=== PATIENT | female | born 1950 | race Caucasian/White ===

== ENCOUNTER 2017-12-06 05:50 | Inpatient (IN) | payer OTHER ==
[2017-12-06] MEDS ORDERED: CEFAZOLIN 2 GM/50 ML (PMX) 50 ML IVPB (07:00)
[2017-12-06] MEDS ORDERED: HETASTARCH 6% NACL 500 ML BAG (07:00)
[2017-12-06] MEDS ORDERED: EPHEDrine SULFATE 50 MG/5 ML SYG (07:00)
[2017-12-06] MEDS ORDERED: ROCURONIUM 50 MG INJ (07:42)
[2017-12-06] MEDS ORDERED: CEFAZOLIN 1 GM INJ (07:42)
[2017-12-06] MEDS ORDERED: MIDAZOLAM 1 MG/ML 2 ML INJ (07:42)
[2017-12-06] MEDS ORDERED: PROPOFOL 20 ML (07:42)
[2017-12-06] MEDS ORDERED: morphine SULFATE/PF (10 MG/10 ML) INJ (07:42)
[2017-12-06] MEDS ORDERED: PHENYLephrine 10 MG INJ (08:07)
[2017-12-06] MEDS ORDERED: PHENYLephrine (100 MCG/ML) 5ML SYG (08:08)
[2017-12-06] MEDS: POLYMYXIN/BACITRACIN 1L IRRIG IRR (08:33)
[2017-12-06] MEDS: LIDOCAINE 1%/EPI 30 ML INJ (08:33)
[2017-12-06] MEDS: HEMOSTATIC MATRIX SYG ZFS ×3 (09:01→09:39)
[2017-12-06] MEDS: THROMBIN 5000 UNIT VIAL ×3 (09:01→09:39)
[2017-12-06] MEDS ORDERED: ONDANSETRON 4 MG INJ (09:43)
[2017-12-06] MEDS ORDERED: DEXAMETHASONE 4 MG/ML 1 ML INJ (09:44)
[2017-12-06] MEDS ORDERED: METOCLOPRAMIDE 10 MG INJ (09:44)
[2017-12-06] MEDS ORDERED: SUGAMMADEX SODIUM 200 MG/2 ML VIAL IV (09:44)
[2017-12-06] MEDS ORDERED: ONDANSETRON 4 MG INJ IV (10:00)
[2017-12-06] MEDS ORDERED: ALBUMIN HUMAN 5% 250 ML IV (10:00)
[2017-12-06] MEDS ORDERED: MEPERIDINE 25 MG INJ IV (10:00)
[2017-12-06] MEDS ORDERED: DIPHENHYDRAMINE 50 MG INJ IV (10:00)
[2017-12-06] MEDS ORDERED: NALOXONE (0.4 MG/ML) INJ IV (10:00)
[2017-12-06] MEDS ORDERED: HYDROmorphONE 0.5 MG/0.5 ML SYG IV ×2 (10:00)
[2017-12-06] MEDS ORDERED: NALBUPHINE HCL (10 MG/1 ML) INJ IV (10:00)
[2017-12-06] MEDS ORDERED: morphine 2 MG INJ IV ×2 (10:00)
[2017-12-06] MEDS ORDERED: METOCLOPRAMIDE 10 MG INJ IV (10:00)
[2017-12-06] MEDS ORDERED: HYDROmorphONE (0.2 MG/ML) 10ML SYG IV ×2 (10:00)
[2017-12-06] MEDS ORDERED: LABETALOL HCL 20MG INJ IV (10:00)
[2017-12-06] MEDS ORDERED: ACETAMINOPHEN 500 MG TAB PO (10:00)
[2017-12-06] MEDS ORDERED: FENTAnyl 50 MCG/ML VIAL IV ×2 (10:00)
[2017-12-06] MEDS ORDERED: hydrALAzine 20 MG INJ IV (10:00)
[2017-12-06] MEDS ORDERED: EPHEDrine SULFATE 50 MG/5 ML SYG IV (10:00)
[2017-12-06] MEDS ORDERED: HYDROCODONE/APAP (5/325) TAB PO (10:30)
[2017-12-06] MEDS ORDERED: HYDROmorphONE 1 MG/ML SYG IV (10:30)
[2017-12-06] MEDS ORDERED: KETOROLAC 30 MG INJ IV (10:30)
[2017-12-06] MEDS ORDERED: ZOLPIDEM 5 MG TAB PO (10:30)
[2017-12-06] MEDS: LACTATED RINGER'S 1,000 ML IV ×2 (11:09→16:47)
[2017-12-06] MEDS: ONDANSETRON 4 MG INJ IV ×2 (11:54→17:39)
[2017-12-06] MEDS: METOCLOPRAMIDE 10 MG TAB PO ×2 (12:00→14:11)
[2017-12-06] MEDS: PHYTONADIONE 10 MG/ML INJ IM (12:39)
[2017-12-06] MEDS: LACTATED RINGER'S 1,000 ML IV* (12:39)
[2017-12-06] MEDS: CEFAZOLIN 1 GM/50 ML (PMX) 50 ML IVPB ×2 (13:52→22:10)
[2017-12-07] MEDS: ONDANSETRON 4 MG INJ IV ×2 (00:32→06:49)
[2017-12-07] MEDS: DIPHENHYDRAMINE 50 MG INJ IV ×2 (00:40→05:02)
[2017-12-07] MEDS: LACTATED RINGER'S 1,000 ML IV ×2 (01:38→13:30)
[2017-12-07 05:20] LABS: ADD MAN DIFF? NO
[2017-12-07] MEDS: CEFAZOLIN 1 GM/50 ML (PMX) 50 ML IVPB ×4 (05:30→21:26)
[2017-12-07 05:33] LABS: BASOPHILS % 0.1 % (0.0-2.0); HEMATOCRIT 27.1 % (37.0-47.0); LYMPHOCYTES # 1.6 10^3/ul (0.8-2.9); LYMPHOCYTES % 16.7 % (15.0-51.0); MEAN CORPUSCULAR HEMOGLOBIN 30.7 pg (29.0-33.0); MEAN CORPUSCULAR HGB CONC 33.2 g/dl (32.0-37.0); MEAN CORPUSCULAR VOLUME 92.5 fl (82.0-101.0); MEAN PLATELET VOLUME 10.9 fl (7.4-10.4); MONOCYTE # 1.3 10^3/ul (0.3-0.9); MONOCYTES % 13.8 % (0.0-11.0); NEUTROPHIL # 6.5 10^3/ul (1.6-7.5); NEUTROPHILS % 69.1 % (39.0-77.0); PLATELET COUNT 179 10^3/UL (140-415); RED BLOOD COUNT 2.93 10^6/ul (4.20-5.40); RED CELL DISTRIBUTION WIDTH 12.7 % (11.5-14.5)
[2017-12-07 05:33] LABS: WHITE BLOOD COUNT 9.5 10^3/ul (4.8-10.8)
[2017-12-07 05:56] LABS: ANION GAP 9 (8-16); BLOOD UREA NITROGEN 12 mg/dl (7-20); CARBON DIOXIDE 29 mmol/L (21-31); CHLORIDE 106 mmol/L (97-110); CREATININE 0.58 mg/dl (0.44-1.00); POTASSIUM 4.2 mmol/L (3.5-5.1); SODIUM 140 mmol/L (135-144)
[2017-12-07] MEDS: METOCLOPRAMIDE 10 MG TAB PO ×4 (06:00→17:34)
[2017-12-07] MEDS: HYDROCODONE/APAP (5/325) TAB PO ×3 (11:40→21:30)
[2017-12-07] MEDS: DIPHENHYDRAMINE 50 MG CAP PO (14:08)
[2017-12-07] MEDS: BISACODYL (EC) 5 MG TAB PO (16:33)
[2017-12-08] MEDS: METOCLOPRAMIDE 10 MG TAB PO ×3 (00:37→12:00)
[2017-12-08 05:35] LABS: ADD MAN DIFF? NO
[2017-12-08 05:37] LABS: BASOPHILS % 0.2 % (0.0-2.0); EOSINOPHILS % 0.3 % (0.0-7.0); HEMOGLOBIN 8.2 g/dl (12.0-16.0); LYMPHOCYTES # 2.1 10^3/ul (0.8-2.9); LYMPHOCYTES % 22.2 % (15.0-51.0); MEAN CORPUSCULAR HEMOGLOBIN 31.3 pg (29.0-33.0); MEAN CORPUSCULAR HGB CONC 34.2 g/dl (32.0-37.0); MEAN CORPUSCULAR VOLUME 91.6 fl (82.0-101.0); MEAN PLATELET VOLUME 11.5 fl (7.4-10.4); MONOCYTE # 1.5 10^3/ul (0.3-0.9); MONOCYTES % 15.6 % (0.0-11.0); NEUTROPHIL # 5.8 10^3/ul (1.6-7.5); NEUTROPHILS % 61.5 % (39.0-77.0); PLATELET COUNT 160 10^3/UL (140-415); RED BLOOD COUNT 2.62 10^6/ul (4.20-5.40); RED CELL DISTRIBUTION WIDTH 13.3 % (11.5-14.5)
[2017-12-08 05:37] LABS: WHITE BLOOD COUNT 9.5 10^3/ul (4.8-10.8)
[2017-12-08] MEDS: CEFAZOLIN 1 GM/50 ML (PMX) 50 ML IVPB (06:04)
[2017-12-08] MEDS: BISACODYL 10 MG SUPP PR (10:48)
[2017-12-08] MEDS: BISACODYL (EC) 5 MG TAB PO (12:02)
[2017-12-08] MEDS: HYDROCODONE/APAP (5/325) TAB PO (12:02)
== END 2017-12-08 13:06 | disposition home or self-care (01) | DRG 748 ==
LOC: REC 05:50 → MS1 11:26
PROC: 0USG0ZZ Reposition Vagina, Open Approach (ICD-10-PCS; principal; 2017-12-06 07:30)
PROC: 0TSD0ZZ Reposition Urethra, Open Approach (ICD-10-PCS; 2017-12-06 07:30)
DX: N81.10 Cystocele, unspecified (principal); N39.46 Mixed incontinence; Z90.710 Acquired absence of both cervix and uterus
CPT/HCPCS: 80051; 82565; 84520; 85025; 87086; 93005

== ENCOUNTER 2017-12-18 16:51 | Emergency (ER) | payer MEDICARE, OTHER ==
[2017-12-18] MEDS: ACETAMINOPHEN 325 MG TAB PO (19:57)
[2017-12-18] MEDS: LACTATED RINGER'S 1,000 ML IV (19:58)
[2017-12-18 20:15] LABS: ADD MAN DIFF? NO
[2017-12-18 20:19] LABS: WHITE BLOOD COUNT 16.9 10^3/ul (4.8-10.8)
[2017-12-18 20:19] LABS: ABNORMAL IP MESSAGE 1; BASOPHILS % 0.2 % (0.0-2.0); EOSINOPHILS # 0.1 10^3/ul (0.0-0.5); EOSINOPHILS % 0.5 % (0.0-7.0); HEMATOCRIT 29.2 % (37.0-47.0); HEMOGLOBIN 9.5 g/dl (12.0-16.0); LYMPHOCYTES # 2.8 10^3/ul (0.8-2.9); LYMPHOCYTES % 16.3 % (15.0-51.0); MEAN CORPUSCULAR HEMOGLOBIN 30.3 pg (29.0-33.0); MEAN CORPUSCULAR HGB CONC 32.5 g/dl (32.0-37.0); MEAN PLATELET VOLUME 10.4 fl (7.4-10.4); MONOCYTE # 2.4 10^3/ul (0.3-0.9); MONOCYTES % 13.9 % (0.0-11.0); NEUTROPHIL # 11.6 10^3/ul (1.6-7.5); NEUTROPHILS % 68.5 % (39.0-77.0); PLATELET COUNT 331 10^3/UL (140-415); RED BLOOD COUNT 3.14 10^6/ul (4.20-5.40); RED CELL DISTRIBUTION WIDTH 13.2 % (11.5-14.5)
[2017-12-18 20:25] LABS: POSITIVE DIFF @See below
[2017-12-18 20:40] LABS: ALANINE AMINOTRANSFERASE 26 IU/L (13-69); ALBUMIN 4.2 g/dl (3.3-4.9); ALBUMIN/GLOBULIN RATIO 1.13; ALKALINE PHOSPHATASE 78 IU/L (42-121); ANION GAP 14 (8-16); ASPARTATE AMINO TRANSFERASE 17 IU/L (15-46); BLOOD UREA NITROGEN 15 mg/dl (7-20); CALCIUM 9.2 mg/dl (8.4-10.2); CARBON DIOXIDE 26 mmol/L (21-31); CHLORIDE 105 mmol/L (97-110); CREATININE 0.75 mg/dl (0.44-1.00); GLUCOSE 116 mg/dl (70-220); LIPASE 41 U/L (23-300); POTASSIUM 3.9 mmol/L (3.5-5.1); SODIUM 141 mmol/L (135-144); TOTAL PROTEIN 7.9 g/dl (6.1-8.1)
[2017-12-18 20:42] LABS: INR 1.05; PARTIAL THROMBOPLASTIN TIME 36.8 Sec (25.0-35.0); PROTIME 13.8 Sec (11.9-14.9); PT RATIO 1.1
[2017-12-18 20:59] LABS: TROPONIN-I < 0.012 ng/ml (0.00-0.12)
[2017-12-18 22:40] LABS: URINE PH (Dip) POC 6.5 (5.0-8.5)
[2017-12-18 22:40] LABS: URINE BLOOD (Dip) POC 2+ (NEGATIVE); URINE GLUCOSE (Dip) POC Negative (NEGATIVE); URINE KETONES (Dip) POC Negative (NEGATIVE); URINE LEUKOCYTE EST (Dip) POC 1+ (NEGATIVE); URINE NITRITE (Dip) POC Negative (NEGATIVE); URINE TOTAL PROTEIN POC Negative (NEGATIVE)
[2017-12-18 23:11] LABS: URINE BLOOD (Dip) POC 2+ (NEGATIVE); URINE GLUCOSE (Dip) POC Negative (NEGATIVE); URINE KETONES (Dip) POC Negative (NEGATIVE); URINE LEUKOCYTE EST (Dip) POC 1+ (NEGATIVE); URINE NITRITE (Dip) POC Negative (NEGATIVE); URINE TOTAL PROTEIN POC Negative (NEGATIVE)
== END 2017-12-19 | disposition home or self-care (01) ==
LOC: FTE 12-19
DX: T83.511A Infection and inflammatory reaction due to indwelling urethral catheter, initial encounter (principal); R06.02 Shortness of breath; Y62 Failure of sterile precautions during surgical and medical care
CPT/HCPCS: 36415; 71046; 76856; 80053; 81003; 83690; 84484; 85025; 85610; 85730; 86850; 86900; 86901; 87086; 93005; 99285-25